=== PATIENT | male | born 1960 | race Two or more races ===

== ENCOUNTER 2025-09-06 14:42 | Inpatient (IN) | payer MEDICAID, OTHER ==
[~2025-09-06] VITALS: Ht 170.2 cm; Wt 81.0 kg
[2025-09-06] MEDS: MIDAZOLAM HCL 5 MG/ML-1ML VIAL IM ONE (15:03)
--- NOTE | 2025-09-06 15:09 | ED.PDOC ---
History of Present Illness HPI Comments 64-year-old male brought in by ambulance with a prior medical history of Parkinson's disease in the chief complaint of ALOC. EMS report on picking the patient home from home after family called to find the patient having an increase of visual and auditory hallucinations associated with an increase of falls for the past four days. Patient is A&Ox0 at this time. Family stated to EMS that the patient took a walk last night barefoot in the rain and that one of the neighbors brought the patient back home. EMS denies any other symptoms at this time. EMS denies chills, fever, N/V/D, SOB, CP. No other associated symptoms, modifiers, recent injuries or sick contacts present at this time. Chief Complaint: ALOC Time Seen by MD: 14:45 Reviewed Notes: Nurses Notes, [employer]inner [employer] Notes, Medications, Allergies Allergies: Coded Allergies: NO KNOWN ALLERGIES (Unverified , 09/06/25) Information Source: Emergency Med Personnel Mode of Arrival: EMS Severity: Moderate Timing: Days Duration: Since onset, Days Prehospital treatment: None Past Medical History PAST MEDICAL HISTORY: Pt Confused Surgical History: Pt Confused Family History Family History: Pt Confused Social History Smoker: Pt Confused Alcohol: Pt Confused Drugs: Pt Confused Lives In: Home Unable to Obtain due to: Altered Mental Status All Other Systems: Reviewed and Negative Physical Exam Exam Comments Patient's altered General Appearance: No Apparent Distress, Normal HEENT: Normal ENT Inspection, Pharynx Normal, TMs Normal Neck: Full Range of Motion, Non-Tender, Normal, Normal Inspection Respiratory: Chest Non-Tender, Lungs Clear, No Accessory Muscle Use, No Respiratory Distress, Normal Breath Sounds Cardiovascular: No Edema, No JVD, No Murmur, No Gallop, Normal Peripheral Puls es, Regular Rate/Rhythm Breast Exam: Deferred Gastrointestinal: No Organomegaly, Non Tender, No Pulsatile Mass, Normal Bowel Sounds, Soft Genitalia: Deferred Pelvic: Deferred Rectal: Deferred Extremities: No calf tenderness, Normal capillary refill, Normal inspection, Normal range of motion, Non-tender, No pedal edema Musculoskeletal : Apperance: Normal Neurologic: Alert, skill labor II-XII nml as Tested, No Motor Deficits, Normal Affect, Normal Mood, No Sensory Deficits Cerebellar Function: Normal Reflexes: Normal Skin: Dry, Normal Color, Warm Lymphatic: No Adenopathy Was a procedure done? Was a procedure done?: No Differential Dx Considerations may include: ACS, CVA, viral syndrome, electrolyte abnormalities, encephalopathy X-Ray, Labs, Meds, VS Vital Signs Date Time Temp Pulse Resp B/P (MAP) Pulse Ox O2 Delivery O2 Flow Rate FiO2 09/06/25 17:00 70 25 117/64 (81) 96 09/06/25 16:00 90 22 117/66 (83) 87 09/06/25 15:15 98.5 106 25 135/77 (96) 92 98.5 09/06/25 15:15 106 23 92 Room Air* 0 21 09/06/25 14:51 99.7 99 26 205/167 94 99.7 Lab Test 09/06/25 16:15 09/06/25 15:10 Range/Units Troponin I High Sensitivity 13 10 </=54 ng/L White Blood Count 10.6 4.4-10.8 10^3/uL Red Blood Count 4.93 4.5-5.90 10^6/uL Hemoglobin 15.7 13.5-17.5 g/dL Hematocrit 45.0 41.0-53.0 % Mean Corpuscular Volume 91.2 80.0-100.0 fL Mean Corpuscular Hemoglobin 31.8 28.0-32.0 pg Mean Corpuscular Hemoglobin Concent 34.9 32.0-36.0 g/dL Red Cell Distribution Width 13.0 11.8-14.3 % Platelet Count 216 140-450 10^3/uL Mean Platelet Volume 8.0 6.9-10.8 fL Neutrophils (%) (Auto) 79.3 37.0-80.0 % Lymphocytes (%) (Auto) 10.9 10.0-50.0 % Monocytes (%) (Auto) 9.4 0.0-12.0 % Eosinophils (%) (Auto) 0.1 0.0-7.0 % Basophils (%) (Auto) 0.3 0.0-2.0 % Neutrophils # (Auto) 8.4 1.6-8.6 10 ^3/uL Lymphocytes # (Auto) 1.2 0.4-5.4 10 ^3/uL Monocytes # (Auto) 1.0 0-1.3 10 ^3/uL Eosinophils # (Auto) 0 0-0.8 10 ^3/uL Basophils # (Auto) 0 0-0.2 10 ^3/uL Nucleated Red Blood Cells 0.1 % Sodium Level 138 136-145 mmol/L Potassium Level 3.8 3.5-5.1 mmol/L Chloride Level 101 98-107 mmol/L Carbon Dioxide Level 24 20-31 mmol/L Anion Gap 13 5-15 Blood Urea Nitrogen 15 9-23 mg/dL Creatinine 0.91 0.700-1.30 mg/dL Glomerular Filtration Rate Calc 95 >90 mL/min BUN/Creatinine Ratio 16.5 10.0-20.0 Serum Glucose 94 74-106 mg/dL Lactic Acid Level 2.2 *H 0.4-2.0 mmol/L Calcium Level 9.5 8.7-10.4 mg/dL Current Medications Medications (Trade) Dose Ordered Sig/Emily Route Start Time Stop Time Status Last Admin Midazolam HCl (Versed Injection) 10 mg ONCE ONCE IM 09/06/25 15:00 09/06/25 15:01 DC 09/06/25 15:03 Sodium Chloride 1,000 ml @ 1,000 mls/hr Q1H ONCE IV 09/06/25 15:15 09/06/25 16:14 DC 09/06/25 15:15 Time of 1ST Reevaluation: 15:15 Reevaluation 1ST: Unchanged Patient Education/Counseling: Other (Patient's altered) Family Education/Counseling: No Family Present SEPSIS Sepsis Screen Physician Orders Urinalysis (09/06/25 15:01) Chest Portable (09/06/25 15:01) Head Without Contrast (09/06/25 15:01) Electrocardigram (09/06/25 15:01) Blood Culture (09/06/25 15:01) Troponin-I Hs (09/06/25 18:01) Electrocardigram (09/06/25 16:01) Electrocardigram (09/06/25 18:01) Insert Ramirez Catheter QSHIFT (09/06/25 15:01) Urine Bacterial Culture (09/06/25 17:37) Vital Signs Date Time Temp Pulse Resp B/P (MAP) Pulse Ox O2 Delivery O2 Flow Rate FiO2 09/06/25 17:00 70 25 117/64 (81) 96 09/06/25 16:00 90 22 117/66 (83) 87 09/06/25 15:15 98.5 106 25 135/77 (96) 92 98.5 09/06/25 15:15 106 23 92 Room Air* 0 21 09/06/25 14:51 99.7 99 26 205/167 94 99.7 Laboratory Tests Test 09/06/25 15:10 Lactic Acid Level 2.2 mmol/L (0.4-2.0) *H White Blood Count 10.6 10^3/uL (4.4-10.8) Medications Medications Dose Ordered Sig/Emily Route Start Time Stop Time Status Last Admin Dose Admin Midazolam HCl 10 mg ONCE ONCE IM 09/06/25 15:00 09/06/25 15:01 DC 09/06/25 15:03 Sodium Chloride 1,000 ml @ 1,000 mls/hr Q1H ONCE IV 09/06/25 15:15 09/06/25 16:14 DC 09/06/25 15:15 Departure 1 Departure Time of Disposition: 18:01 (Patient with a worsening altered mental status and concern for a metabolic encephalopathy. Patient also with concern for CVA. Labs and CT scan up in bed.) Impression: Primary Impression: Acute metabolic encephalopathy Additional Impressions: Generalized weakness Parkinson's syndrome Disposition: ADMITTED INPATIENT Admit to: Tele Condition: Guarded Critical Care Note Critical Care Time?: Yes Critical care comment: Altered mental status and encephalopathy concerning for possible CVA Authorized and Performed by: Minoo Ardon MD Total critical care time: Approximately 39 minutes Due to a high probability of clinically significant, life threatening d eterioration, the patient required my highest level of preparedness to intervene emergently and I personally spent this critical care time directly and personally managing the patient. This critical care time included obtaining a history; examining the patient; pulse oximetry; ordering and review of studies; arranging urgent treatment with development of a management plan; evaluation of patient's response to treatment; frequent reassessment; and, discussions with other providers. This critical care time was performed to assess and manage the high probability of imminent, life-threatening deterioration that could result in multi-organ failure. It was exclusive of separately billable procedures and treating other patients and teaching time. Please see my other sections and the rest of the note for further information on patient assessment and treatment. Stability Stability form required: No I personally scribed for MINOO ARDON MD ([email or web address]) on 09/06/25 at 15:09. Electronically submitted by Rehan Lin ([email or web address]). MINOO ARDON MD Sep 06, 2025 15:09
[2025-09-06 15:15] VITALS: PULSE 106; RESP 23; O2SAT 92
[2025-09-06] MEDS: SODIUM CHLORIDE 0.9% 1,000 ML IV ONE (15:15)
[2025-09-06 15:30] LABS: Hematocrit 45.0 % (41.0-53.0); Hemoglobin 15.7 g/dL (13.5-17.5); Mean Corpuscular Hemoglobin 31.8 pg (28.0-32.0); Mean Corpuscular Volume 91.2 fL (80.0-100.0); Nucleated Red Blood Cells % 0.1 %
[2025-09-06 15:40] LABS: Chloride 101 mmol/L (98-107); Potassium 3.8 mmol/L (3.5-5.1); Sodium 138 mmol/L (136-145)
[2025-09-06 15:41] LABS: Anion Gap 13 (5-15); Calcium 9.5 mg/dL (8.7-10.4); Carbon Dioxide 24 mmol/L (20-31)
[2025-09-06 15:46] LABS: BUN/Creatinine Ratio 16.5 (10.0-20.0); Blood Urea Nitrogen 15 mg/dL (9-23); Glucose 94 mg/dL (74-106)
[2025-09-06 15:58] LABS: Lactic Acid w/Reflex 2.2 mmol/L (0.4-2.0)
--- NOTE | 2025-09-06 16:02 | DVH ---
XY CHEST PORTABLE, HISTORY: ams COMPARISON: None None TECHNICAL DATA: 1 view of the chest was obtained. FINDINGS: Lines and tubes: None Cardiomediastinal silhouette: normal Pulmonary vasculature: normal Lung expansion: low Lung airspace: normal Lung interstitium: normal Pleura: normal Pneumothorax: no Bones: Unremarkable Other: no IMPRESSION: Limited exam due to hyperexpansion of the lungs. No acute intrathoracic abnormality.
--- NOTE | 2025-09-06 16:10 | DVH ---
Procedure: CT HEAD WITHOUT CONTRAST Study Date and Requested Time: 09/06/2025 03:29 PM History: ams Comparison: None Dose: CTDI: 53.46 mGy DLP: 965.73 mGycm Technique: Multiplanar images obtained through the brain without intravenous contrast. Findings: Normal brain volume and formation. No hemorrhages, masses, mass effect, midline shift, herniation or cytotoxic edema following a large vascular territory. No intra-axial or extra-axial fluid collections. No evidence of hydrocephalus. The basal cisterns are patent. The pituitary gland, sella and parasellar regions are unremarkable. The cerebellar tonsils are in normal position. The cerebellum is unremarkable. The orbits and globes are unremarkable. Mild mucoperiosteal thickening of the right maxillary sinus. Otherwise, the paranasal sinuses and mastoids are clear. There are no worrisome calvarial lesions. Cerumen within the Left external auditory Canal. Impression: No evidence of acute intracranial abnormality.
[2025-09-06] MEDS: MIDAZOLAM HCL 5 MG/ML-1ML VIAL IV ONE (18:28)
[2025-09-06 19:30] VITALS: O2SAT 96
[2025-09-06 20:39] LABS: Urine Protein, UAD Negative (Negative)
[2025-09-06] MEDS ORDERED: NITROGLYCERIN 0.4 MG SL TAB SL PRN (21:30)
[2025-09-06] MEDS ORDERED: MORPHINE SULFATE INJ 2 MG/ml SYRG IV PRN (21:30)
--- NOTE | 2025-09-06 21:36 | DVHHPRES ---
History of Present Illness Resident Creating Document: KEEGAN CAMPA History of Present Illness Chief complaints: Altered mental status Wil Franz, 64-year-old male with previous history of Parkinson's disease on antiparkinson medications accompanied by family members presented to the ER with altered mental status, involuntary movements and abdominal pain. History was obtained from the family members due to patient's mental status. They reported that patient's baseline mental status is mild confusion, however, on the day of admission the patient was very agitated and escaped from home. That is why they brought him to the hospital. The sister reports the patient complained of upper abdominal pain, before the episode started. She denies the patient having any urinary symptoms, shortness of breath, chest pain or any o ther complaints before starting the episodes of hallucinations. Past medical history: Parkinson's disease Past surgical history: Inguinal hernia surgery 5 years ago Family history: Noncontributory Home medications: Sinemet (levo carbidopa), Artane (trihexyphenidyl) Smoking history: Previously heavy smoker, quit many years Alcohol: Occasionally Drugs: Denied Drug allergy: None Primary care doctor: [facility] Code status: Deferred due to patient's mental status. Review of Systems Gastrointestinal: Abdominal Pain Neurological: Confusion Allergies: Coded Allergies: NO KNOWN ALLERGIES (Unverified , 09/06/25) Exam Vital Signs Vital Signs Date Time Temp Pulse Resp B/P (MAP) Pulse Ox O2 Delivery O2 Flow Rate FiO2 09/06/25 18:00 72 24 119/64 (82) 96 09/06/25 15:15 98.5 98.5 09/06/25 15:15 Room Air* 0 21 Exam Pt is lying on bed General Appearance: Confused, not oriented to time place and person, Mild distress HEENT: Atraumatic, Mucous membranes moist/pink, Orofacial dyskinesia, Respiratory: Clear to auscultation, Normal air movement, No added sounds Cardiovascular: Regular rate, Normal S1, Normal S2, No murmurs Abdominal/ : Active bowel sounds, Soft, no distention, no tenderness Extremities: Chorea, No edema, Normal pulses, No tenderness/swelling Skin: No Significant rash, except past surgical scars Neuro: Normal speech, sensorimotor deficits none Psych/Mental Status: Mental status NL, Mood NL Nurse was there as corporate development intern during examination Labs/Xrays Labs Test 09/06/25 20:10 09/06/25 19:35 09/06/25 18:07 09/06/25 15:10 Range/Units Urine Color Light-orange Yellow Urine Clarity Clear Clear Urine pH 6.0 5.0-9.0 Urine Specific [place] 1.018 1.001-1.035 Urine Protein Negative Negative Urine Ketones 2+ H Negative Urine Blood 1+ H Negative /uL Urine Nitrite Negative Negative Urine Bilirubin Negative Negative Urine Urobilinogen Normal Negative mg/dL Urine Leukocyte Esterase Negative Negative /uL Urine RBC 8 0 - 3 /hpf Urine Microscopic WBC < 1 0-3 /HPF Urine Squamous Epithelial Cells Few <5 /hpf Urine Bacteria None seen None Seen /hpf Urine Hyaline Casts Few 0 - 2 /lpf Urine Glucose Normal Normal mg/dL POC Glucose 115 H 70-106 mg/dl Lactic Acid Level 0.4 0.4-2.0 mmol/L Troponin I High Sensitivity 21 </=54 ng/L White Blood Count 10.6 4.4-10.8 10^3/uL Red Blood Count 4.93 4.5-5.90 10^6/uL Hemoglobin 15.7 13.5-17.5 g/dL Hematocrit 45.0 41.0-53.0 % Mean Corpuscular Volume 91.2 80.0-100.0 fL Mean Corpuscular Hemoglobin 31.8 28.0-32.0 pg Mean Corpuscular Hemoglobin Concent 34.9 32.0-36.0 g/dL Red Cell Distribution Width 13.0 11.8-14.3 % Platelet Count 216 140-450 10^3/uL Mean Platelet Volume 8.0 6.9-10.8 fL Neutrophils (%) (Auto) 79.3 37.0-80.0 % Lymphocytes (%) (Auto) 10.9 10.0-50.0 % Monocytes (%) (Auto) 9.4 0.0-12.0 % Eosinophils (%) (Auto) 0.1 0.0-7.0 % Basophils (%) (Auto) 0.3 0.0-2.0 % Neutrophils # (Auto) 8.4 1.6-8.6 10 ^3/uL Lymphocytes # (Auto) 1.2 0.4-5.4 10 ^3/uL Monocytes # (Auto) 1.0 0-1.3 10 ^3/uL Eosinophils # (Auto) 0 0-0.8 10 ^3/uL Basophils # (Auto) 0 0-0.2 10 ^3/uL Nucleated Red Blood Cells 0.1 % Sodium Level 138 136-145 mmol/L Potassium Level 3.8 3.5-5.1 mmol/L Chloride Level 101 98-107 mmol/L Carbon Dioxide Level 24 20-31 mmol/L Anion Gap 13 5-15 Blood Urea Nitrogen 15 9-23 mg/dL Creatinine 0.91 0.700-1.30 mg/dL Glomerular Filtration Rate Calc 95 >90 mL/min BUN/Creatinine Ratio 16.5 10.0-20.0 Serum Glucose 94 74-106 mg/dL Calcium Level 9.5 8.7-10.4 mg/dL SEPSIS Sepsis Screen Date sepsis recognized/suspect: Sep 06, 2025 Time Sepsis recognized/suspect: 1514 Recent Procedure: No On Antibiotic Therapy: No Respiratory Rate >20: No Heart Rate >90: No Temp<36 C (96.8 F) or >38.3 C: No SBP <90 or MAP <65 mmHG: No New Acute Mental Status Change: No Is the patient on CPAP, BIPAP,: No Physician Orders Chest Portable (09/06/25 15:01) Head Without Contrast (09/06/25 15:01) Electrocardigram (09/06/25 15:01) Blood Culture (09/06/25 15:01) Electrocardigram (09/06/25 16:01) Electrocardigram (09/06/25 18:01) Insert Ramirez Catheter QSHIFT (09/06/25 15:01) Urine Bacterial Culture (09/06/25 17:37) Admit (09/06/25 21:24) Nitroglycerin Sublingual (Ntrostat Subli (09/06/25 21:30) Morphine Sulfate Injection (09/06/25 21:30) Oxygen By Nasal Cannula (09/06/25 21:24) Stat Ekg For Chest Pain (09/06/25 21:24) Notify Of Changes From Base (09/06/25 21:24) Mine Motor Operator For 24 Hours (09/06/25 21:24) Emergency Dysrhythmia Protocol (09/06/25 21:24) Rhythm Strips Once Every Shift (09/06/25 21:24) Ct Ab Pel Wo Con-No Oral Or Iv (09/06/25 21:24) B-Type Natriuretic Peptide (09/06/25 21:24) NS (09/06/25 21:30) Ceftriaxone Ivpb Rocephin (09/06/25 21:30) Ceftriaxone Ivpb Rocephin (09/07/25 10:00) Doxycycline 100mg/100ml (Vibramycin) (09/06/25 21:30) Drug Screen (09/06/25 21:24) Ammonia (09/06/25 21:24) Thyroid Stimulating Hormone (09/06/25 21:24) Vital Signs Date Time Temp Pulse Resp B/P (MAP) Pulse Ox O2 Delivery O2 Flow Rate FiO2 09/06/25 18:00 72 24 119/64 (82) 96 09/06/25 17:00 70 25 117/64 (81) 96 09/06/25 16:00 90 22 117/66 (83) 87 09/06/25 15:15 98.5 106 25 135/77 (96) 92 98.5 09/06/25 15:15 106 23 92 Room Air* 0 21 09/06/25 14:51 99.7 99 26 205/167 94 99.7 Laboratory Tests Test 09/06/25 15:10 09/06/25 18:07 Lactic Acid Level 2.2 mmol/L (0.4-2.0) *H 0.4 mmol/L (0.4-2.0) White Blood Count 10.6 10^3/uL (4.4-10.8) Medications Medications Dose Ordered Sig/Emily Route Start Time Stop Time Status Last Admin Dose Admin Midazolam HCl 5 mg ONCE ONCE IV 09/06/25 18:30 09/06/25 18:31 DC 09/06/25 18:28 5 MG Midazolam HCl 10 mg ONCE ONCE IM 09/06/25 15:00 09/06/25 15:01 DC 09/06/25 15:03 10 MG Sodium Chloride 1,000 ml @ 1,000 mls/hr Q1H ONCE IV 09/06/25 15:15 09/06/25 16:14 DC 09/06/25 15:15 1,000 MLS/HR Assessment/Plan Assessment/Plan Acute metabolic/toxic encephalopathy Sepsis or sirs due to acute Gram-positive or Gram-negative pneumonia head CT: No acute abnormality Chest x-ray: No acute abnormality EKG ordered, pending results Urinalysis: Negative UDS ordered IV antibiotics ceftriaxone and doxycycline ordered Parkinson's disease Chorea due to medication induced dyskinesia/anticholinergic effect Delirium due to underlying infection? Discontinue home medications due to acute confusion (home medications, Sinemet,artane) IV benzodiazepine IV Versed IV Benadryl Neurology consulted GI prophylaxis: Pantoprazole DVT prophylaxis: Lovenox Diet: NPO Goals of care discussed with the patient for more than 27 minutes: Full code status Case discussed with Dr. Aguilar, patient and RN Plan discussed with: Spouse, Daughter, Other (family,RN) My Orders Orders - KEEGAN CAMPA RESIDENT Procedure Category Date Status Time Admit ADMIT 09/06/25 Transmitted 21:24 Nitroglycerin PHA 09/06/25 Transmitted Sublingual (Ntrostat 21:30 Morphine Sulfate PHA 09/06/25 Transmitted Injection 21:30 Oxygen By Nasal RT 09/06/25 Transmitted Cannula 21:24 Stat Ekg For Chest VERITO 09/06/25 Transmitted Pain 21:24 Notify Md Of Changes VERITO 09/06/25 Transmitted From Base 21:24 Mine Motor Operator For VERITO 09/06/25 Transmitted 24 Hours 21:24 Emergency Dysrhythmia VERITO 09/06/25 Transmitted Protocol 21:24 Rhythm Strips Once VERITO 09/06/25 Transmitted Every Shift 21:24 Ct Ab Pel Wo Con-No CT 09/06/25 Transmitted Oral Or Iv 21:24 B-Type Natriuretic LAB 09/06/25 Transmitted Peptide 21:24 NS PHA 09/06/25 Transmitted 21:30 Ceftriaxone Ivpb PHA 09/06/25 Transmitted Rocephin 21:30 Ceftriaxone Ivpb PHA 09/07/25 Transmitted Rocephin 10:00 Doxycycline PHA 09/06/25 Transmitted 100mg/100ml 21:30 Drug Screen LAB 09/06/25 Transmitted 21:24 Ammonia LAB 09/06/25 Transmitted 21:24 Thyroid Stimulating LAB 09/06/25 Transmitted Hormone 21:24 Date of Service: Sep 06, 2025 Billing Provider: ANGELA AGUILAR MD Common Visit Codes: [id number] INP/OBS CARE (HIGH) Secondary Visit Codes: [id number] CARE PLAN 30 MINUTES KEEGAN CAMPA Sep 06, 2025 21:36
[2025-09-06] MEDS: SODIUM CHLORIDE 0.9% 1,000 ML IV SCH (22:15)
[2025-09-06] MEDS: PANTOPRAZOLE 40 MG/10 ML VIAL INJ IV ONE (22:15)
[2025-09-06] MEDS: ENOXAPARIN SOD 40 MG/0.4 ML SYRINGE SC ONE (22:16)
--- NOTE | 2025-09-06 22:41 | DVH ---
Exam: CT CT AB PEL WO CON-NO ORAL OR IV History: abdominal pain Comparison Study: None TECHNIQUE: Multidetector CT of the abdomen and pelvis was performed from lung bases to pubic symphysis. Imaging was performed without IV contrast. Axial, coronal, and sagittal multiplanar reformats were obtained from the axial data set by the technologist. RADIATION DOSE: CTDI vol 15.3 mGy. DLP 781.2 mGy.cm Findings: Limited evaluation of the solid organs in the absence of IV contrast. Evaluation is also degraded by motion artifact. Lungs: Basilar atelectasis/scarring. Liver: Unremarkable. Spleen: Unremarkable. Pancreas: Unremarkable. Gallbladder: Unremarkable. Adrenals: Unremarkable Kidneys: Unremarkable. Pelvic Viscera: A Ramirez catheter is present within a decompressed urinary bladder. Vasculature: Mild atherosclerotic vascular calcification. Retroperitoneum: Unremarkable. Bowel: No bowel obstruction. The appendix is normal. Nonspecific distention of the stomach. Musculoskeletal: Dextroscoliosis. Soft tissues: Unremarkable Impression: 1. Artifact degraded evaluation without acute abdominopelvic abnormality. 2. Incidental findings as detailed.
[2025-09-06] MEDS: DOXYCYCLINE 100MG/100ML 100 ML IV ONE (23:00)
[2025-09-06 23:27] LABS: Amphetamine Screen, Urine Neg (NEGATIVE); Phencyclidine Screen, Urine Neg (NEGATIVE)
[2025-09-06 23:29] LABS: Barbiturate Scree,Urine Neg (NEGATIVE); Benzodiazephine Screen, Urine Pos (NEGATIVE); Cannabinoid Screen, Urine Neg (NEGATIVE); Cocaine Screen, Urine Neg (NEGATIVE); Opiate Scree,Urine Neg (NEGATIVE)
[2025-09-07] MEDS: LORazepam 2MG/ML-1ML VIAL IV ONE ×2 (00:40→01:23)
[2025-09-07] MEDS: LORazepam 2MG/ML-1ML VIAL ONE (00:53)
[2025-09-07] MEDS: KETOROLAC TROMETH 30 MG/ML 1ML VIAL IV PRN (03:16)
[2025-09-07] MEDS: diphenhydrAMINE HCL 50 MG/1 ML VL ONE (04:02)
[2025-09-07] MEDS: diphenhydrAMINE HCL 50 MG/1 ML VL IV ONE (04:03)
[2025-09-07 06:12] LABS: COVID19 ANTIGEN SOFIA FIA NEGATIVE (NEGATIVE)
[2025-09-07] MEDS: ACETAMINOPHEN 650 MG RECT SUPP PR ONE (06:12)
[2025-09-07 07:29] VITALS: O2SAT 98
[2025-09-07] MEDS: PANTOPRAZOLE 40 MG/10 ML VIAL INJ IV SCH (10:05)
[2025-09-07] MEDS: ENOXAPARIN SOD 40 MG/0.4 ML SYRINGE SC SCH (10:06)
--- NOTE | 2025-09-07 10:23 | ECG ---
[facility] Test Date: 2025-09-07 Test Time: 01:24:29 Pat Name: MAURIZIO COLON Department: ED Room: 0249 Gender: M Etl Developer: JOVON : 1960 Requested By: KEEGAN CAMPA Order Number: [id number] Reading MD: Andrew Shah Measurements Intervals [place] Rate: 91 P: 53 PA: 130 QRS: 90 QRSD: 91 T: 10 QT: 347 QTc: 427 Interpretive Statements Sinus rhythm Borderline right axis deviation Low voltage, extremity leads Abnormal R-wave progression, late transition Minimal ST depression, inferior leads Baseline wander in lead(s) I,II,III,aVR,aVF,V1 Electronically Signed On 09-08-2025 17:57:39 PST by Andrew Shah Please click the below link to view image of tracing.
--- NOTE | 2025-09-07 13:55 | DVHPN2 ---
Subjective Patient reports lower back pain Reviewed: Care Plan, H&P, Labs, Medications Changes from previous H/P or p: No Changes General: Per HPI Gastrointestinal: Abdominal Pain Objective Vitals Vital Signs Date Time Temp Pulse Resp B/P (MAP) Pulse Ox O2 Delivery O2 Flow Rate FiO2 09/07/25 13:05 16 136/76 (96) 97 09/07/25 10:11 102 09/07/25 08:07 98.6 98.6 09/07/25 07:29 Nasal Cannula* 2 28 Intake/Output Intake and Output 09/07/25 07:00 Intake Total 1730 ml Output Total 900 ml Balance 830 ml Intake IV Total 1730 ml Output Urine Total 900 ml General Appearance: Alert, mild distress, Other (Altered mental status) HEENT: Atraumatic, PERRLA Cardiovascular: Normal S1, Normal S2 Abdomen: Normal bowel sounds, Soft, No tenderness Musculoskeletal: Normal sensory function, Normal motor function Neuro: Normal gait, Normal speech Skin: Dry, Intact Psych/Mental Status: Mental status NL Medications Current Medications Medications Dose Ordered Sig/Emily Route Start Time Stop Time Status Last Admin Dose Admin Nitroglycerin 0.4 mg Q5MINP PRN SL 09/06/25 21:30 Morphine Sulfate 2 mg Q30M PRN IV 09/06/25 21:30 Sodium Chloride 1,000 ml @ 75 mls/hr [id number] IV 09/06/25 21:30 09/06/25 22:15 75 MLS/HR Ceftriaxone Sodium 50 ml @ 100 mls/hr DAILY@2100 IV 09/07/25 21:00 Enoxaparin Sodium 40 mg DAILY SC 09/07/25 10:00 09/07/25 10:06 40 MG Pantoprazole Sodium 40 mg DAILY IV 09/07/25 10:00 09/07/25 10:05 40 MG Ketorolac Tromethamine 15 mg Q6HPRN PRN IV 09/07/25 01:15 09/12/25 01:14 09/07/25 03:16 15 MG Laboratory Results Laboratory Tests 09/06/25 15:10 Chemistry Test 09/06/25 15:10 Calcium Level 9.5 mg/dL (8.7-10.4) Cardiac Markers Test 09/06/25 21:44 B-Type Natriuretic Peptide 70.56 pg/mL (0-100) HgA1c, TSH Test 09/06/25 21:44 Thyroid Stimulating Hormone (TSH) 0.40 uIU/mL (0.55-4.78) L Urinalysis Test 09/06/25 20:10 Urine Color Light-orange (Yellow) Urine Clarity Clear (Clear) Urine pH 6.0 (5.0-9.0) Urine Specific [place] 1.018 (1.001-1.035) Urine Protein Negative (Negative) Urine Ketones 2+ (Negative) H Urine Blood 1+ /uL (Negative) H Urine Nitrite Negative (Negative) Urine Bilirubin Negative (Negative) Urine Urobilinogen Normal mg/dL (Negative) Urine Leukocyte Esterase Negative /uL (Negative) Urine RBC 8 /hpf (0 - 3) Urine Microscopic WBC < 1 /HPF (0-3) Urine Squamous Epithelial Cells Few /hpf (<5) Urine Bacteria None seen /hpf (None Seen) Urine Hyaline Casts Few /lpf (0 - 2) Urine Glucose Normal mg/dL (Normal) Microbiology Microbiology Date/Time Source Procedure Growth Status 09/06/25 20:10 Urine - [place] Urine Culture - Preliminary No growth Resulted Labs and/or images reviewed: Labs reviewed by me, Image(s) reviewed by me Assessment/Plan Assessment/Plan Impression: -metabolic encephalopathy -lactic acidosis -Parkinson's disease Plan: -check ESR, CRP vitamin-D, folic acid, thiamine -neurology consultation -continue IV fluids -Haldol 5 mg IM p.r.n. agitation -blood and urine cultures pending -repeat labs in a.m. Total time spent with patient discussing and formulating plan of care: 35 minutes. This medical document was created using an electronic medical record system with [employer] dictation system. Although this document has been carefully reviewed, there may still be some phonetic and typographical errors. These areas are purely typographical due to imperfections of the software programs, and do not reflect any compromise in the patient's medical care. Plan discussed with: Patient, Other (RN) My Orders Orders - REGGIE HANNAH INDIVIDUALIZED EDUCATION PLAN AIDE Procedure Category Date Status Time * Neurology Consult CONS 09/07/25 Transmitted 13:47 Regular Diet DIET 09/07/25 Transmitted Dinner Vitamin B1 (Thiamine) LAB 09/07/25 Transmitted 13:47 Vitamin B12 LAB 09/07/25 Transmitted 13:47 Vitamin D 25-Hydroxy LAB 09/07/25 Transmitted D2 + D3 13:47 Folate (Folic Acid) LAB 09/07/25 Transmitted 13:47 Haloperidol Lactate PHA 09/07/25 Transmitted Injection (Haldol) 14:00 Erythrocyte LAB 09/07/25 Transmitted Sedimentation Rate 13:47 C-Reactive Protein LAB 09/07/25 Transmitted 13:47 Date of Service: Sep 07, 2025 Billing Provider: REGGIE HANNAH NP Common Visit Codes: [id number] INP/OBS CARE(HIGH) REGGIE HANNAH NP Sep 07, 2025 13:55
[2025-09-07] MEDS ORDERED: HALOPERIDOL LACTATE 5 MG/ML INJ VIAL IM PRN (14:00)
[2025-09-07 16:58] VITALS: BP 134/97; PULSE 89; RESP 17; TEMP 99.1; O2SAT 96; O2SAT 98
[2025-09-07 17:00] VITALS: BP 134/97; PULSE 89; RESP 17; TEMP 99.1; O2SAT 96
[2025-09-07 21:00] VITALS: BP 104/71; PULSE 76; RESP 18; RESP 19; TEMP 89.7; TEMP 98.7; O2SAT 98
[2025-09-08] VITALS (7 sets, daily range): BP systolic 122–136; BP diastolic 81–93; PULSE 69–81; RESP 17–22; TEMP 98.2–99.6; O2SAT 96–98
--- NOTE | 2025-09-08 10:12 | DVHPN2 ---
Subjective Patient denies any symptoms Reviewed: Care Plan, H&P, Labs, Medications Changes from previous H/P or p: Changes General: Per HPI Gastrointestinal: Abdominal Pain Objective Vitals Vital Signs Date Time Temp Pulse Resp B/P (MAP) Pulse Ox O2 Delivery O2 Flow Rate FiO2 09/08/25 09:00 99.1 81 22 130/83 (99) 96 99.1 09/07/25 20:00 Room Air* 0 21 Intake/Output Intake and Output 09/08/25 07:00 Intake Total 400 ml Output Total 2350 ml Balance -1950 ml Intake Oral 100 ml IV Total 300 ml Output Urine Total 2350 ml General Appearance: Alert, Oriented X3, Cooperative, No acute distress HEENT: Atraumatic, PERRLA Cardiovascular: Normal S1, Normal S2 Abdomen: Normal bowel sounds, Soft, No tenderness Musculoskeletal: Normal sensory function, Normal motor function Neuro: Normal gait, Normal speech Skin: Dry, Intact Psych/Mental Status: Mental status NL, Mood NL Medications Current Medications Medications Dose Ordered Sig/Emily Route Start Time Stop Time Status Last Admin Dose Admin Nitroglycerin 0.4 mg Q5MINP PRN SL 09/06/25 21:30 Morphine Sulfate 2 mg Q30M PRN IV 09/06/25 21:30 Sodium Chloride 1,000 ml @ 75 mls/hr [id number] IV 09/06/25 21:30 09/08/25 00:10 75 MLS/HR Ceftriaxone Sodium 50 ml @ 100 mls/hr DAILY@2100 IV 09/07/25 21:00 09/07/25 21:28 100 MLS/HR Enoxaparin Sodium 40 mg DAILY SC 09/07/25 10:00 09/07/25 10:06 40 MG Pantoprazole Sodium 40 mg DAILY IV 09/07/25 10:00 09/07/25 10:05 40 MG Ketorolac Tromethamine 15 mg Q6HPRN PRN IV 09/07/25 01:15 09/12/25 01:14 09/07/25 03:16 15 MG Haloperidol Lactate 5 mg Q8HP PRN IM 09/07/25 14:00 Laboratory Results Laboratory Tests 09/06/25 15:10 Urinalysis Test 09/06/25 20:10 Urine Color Light-orange (Yellow) Urine Clarity Clear (Clear) Urine pH 6.0 (5.0-9.0) Urine Specific [place] 1.018 (1.001-1.035) Urine Protein Negative (Negative) Urine Ketones 2+ (Negative) H Urine Blood 1+ /uL (Negative) H Urine Nitrite Negative (Negative) Urine Bilirubin Negative (Negative) Urine Urobilinogen Normal mg/dL (Negative) Urine Leukocyte Esterase Negative /uL (Negative) Urine RBC 8 /hpf (0 - 3) Urine Microscopic WBC < 1 /HPF (0-3) Urine Squamous Epithelial Cells Few /hpf (<5) Urine Bacteria None seen /hpf (None Seen) Urine Hyaline Casts Few /lpf (0 - 2) Urine Glucose Normal mg/dL (Normal) Microbiology Microbiology Date/Time Source Procedure Growth Status 09/06/25 20:10 Urine - [place] Urine Culture - Preliminary No growth Resulted 09/06/25 15:16 Blood Blood Culture - Preliminary NO GROWTH AFTER 24 HOURS OF INCUBATION. Resulted Labs and/or images reviewed: Labs reviewed by me, Image(s) reviewed by me Assessment/Plan Assessment/Plan Impression: -metabolic encephalopathy -lactic acidosis -Parkinson's disease Plan: Events: Previous hallucinations, delusions have resolved. Patient tolerating oral intake without any issues today. Awaiting Neurology consultation. -neurology consultation -continue IV fluids -Haldol 5 mg IM p.r.n. agitation -blood and urine cultures pending Total time spent with patient discussing and formulating plan of care: 35 minutes. This medical document was created using an electronic medical record system with [employer]ACK dictation system. Although this document has been carefully reviewed, there may still be some phonetic and typographical errors. These areas are purely typographical due to imperfections of the software programs, and do not reflect any compromise in the patient's medical care. Plan discussed with: Patient, Other (RN) My Orders Orders - REGGIE HANNAH NP Procedure Category Date Status Time * Neurology Consult CONS 09/07/25 Transmitted 13:47 Regular Diet DIET 09/07/25 Transmitted Dinner Vitamin B1 (Thiamine) LAB 09/07/25 In Process 13:47 Vitamin D 25-Hydroxy LAB 09/07/25 In Process D2 + D3 13:47 Haloperidol Lactate PHA 09/07/25 In Process Injection (Haldol) 14:00 Date of Service: Sep 08, 2025 Billing Provider: SALBINO,PAREDES SAL[employer] SERVICE [employer]OMOTER Common Visit Codes: [id number] INP/OBS CARE(HIGH) REGGIE HANNAH SALES SERVICE PROMOTER Sep 08, 2025 10:12
[2025-09-09] VITALS (8 sets, daily range): BP systolic 117–155; BP diastolic 88–109; PULSE 68–79; RESP 17–18; TEMP 97–98.6; O2SAT 97–98
[2025-09-09] MEDS ORDERED: CARB-86 PO (10:41)
[2025-09-09] MEDS: LACTULOSE 20Gm/30ML SOLN PO ONE (10:45)
--- NOTE | 2025-09-09 10:51 | DVHPN2 ---
Subjective Patient denies any symptoms Reviewed: Care Plan, H&P, Labs, Medications Changes from previous H/P or p: No Changes General: Per HPI Gastrointestinal: Abdominal Pain Objective Vitals Vital Signs Date Time Temp Pulse Resp B/P (MAP) Pulse Ox O2 Delivery O2 Flow Rate FiO2 09/09/25 04:55 98.6 76 18 146/102 (117) 98 98.6 09/08/25 20:00 Nasal Cannula* 2 28 Intake/Output Intake and Output 09/09/25 07:00 Intake Total 2960 ml Output Total 1325 ml Balance 1635 ml Intake Oral 2960 ml Output Urine Total 1325 ml General Appearance: Alert, Oriented X3, Cooperative, No acute distress HEENT: Atraumatic, PERRLA Cardiovascular: Normal S1, Normal S2 Abdomen: Normal bowel sounds, Soft, No tenderness Musculoskeletal: Normal sensory function, Normal motor function Neuro: Normal gait, Normal speech Skin: Dry, Intact Psych/Mental Status: Mental status NL, Mood NL Medications Current Medications Medications Dose Ordered Sig/Emily Route Start Time Stop Time Status Last Admin Dose Admin Nitroglycerin 0.4 mg Q5MINP PRN SL 09/06/25 21:30 Morphine Sulfate 2 mg Q30M PRN IV 09/06/25 21:30 Sodium Chloride 1,000 ml @ 75 mls/hr [id number] IV 09/06/25 21:30 09/09/25 02:50 75 MLS/HR Ceftriaxone Sodium 50 ml @ 100 mls/hr DAILY@2100 IV 09/07/25 21:00 09/08/25 21:09 100 MLS/HR Enoxaparin Sodium 40 mg DAILY SC 09/07/25 10:00 09/08/25 10:33 40 MG Pantoprazole Sodium 40 mg DAILY IV 09/07/25 10:00 09/08/25 10:33 40 MG Ketorolac Tromethamine 15 mg Q6HPRN PRN IV 09/07/25 01:15 09/12/25 01:14 09/07/25 03:16 15 MG Haloperidol Lactate 5 mg Q8HP PRN IM 09/07/25 14:00 Carbidopa/Levodopa 1 tab QID PO 09/09/25 12:00 UNV Amlodipine Besylate 5 mg DAILY PO 09/10/25 10:00 UNV Laboratory Results Laboratory Tests 09/06/25 15:10 Urinalysis Test 09/06/25 20:10 Urine Color Light-orange (Yellow) Urine Clarity Clear (Clear) Urine pH 6.0 (5.0-9.0) Urine Specific [place] 1.018 (1.001-1.035) Urine Protein Negative (Negative) Urine Ketones 2+ (Negative) H Urine Blood 1+ /uL (Negative) H Urine Nitrite Negative (Negative) Urine Bilirubin Negative (Negative) Urine Urobilinogen Normal mg/dL (Negative) Urine Leukocyte Esterase Negative /uL (Negative) Urine RBC 8 /hpf (0 - 3) Urine Microscopic WBC < 1 /HPF (0-3) Urine Squamous Epithelial Cells Few /hpf (<5) Urine Bacteria None seen /hpf (None Seen) Urine Hyaline Casts Few /lpf (0 - 2) Urine Glucose Normal mg/dL (Normal) Microbiology Microbiology Date/Time Source Procedure Growth Status 09/06/25 20:10 Urine - [place] Urine Culture - Preliminary No growth Resulted 09/06/25 15:16 Blood Blood Culture - Preliminary NO GROWTH AFTER 48 HOURS OF INCUBATION. Resulted Labs and/or images reviewed: Image(s) reviewed by me Assessment/Plan Assessment/Plan Impression: -metabolic encephalopathy -lactic acidosis -Parkinson's disease -constipation Plan: Events: No events overnight. Patient A&O x4. Constipated. Neuro evaluation continues to be pending -bowel regimen -restart carbidopa levodopa -neurology consultation -continue IV fluids -Haldol 5 mg IM p.r.n. agitation -blood and urine cultures with no growth at this time Total time spent with patient discussing and formulating plan of care: 35 minutes. This medical document was created using an electronic medical record system with [employer] dictation system. Although this document has been carefully reviewed, there may still be some phonetic and typographical errors. These areas are purely typographical due to imperfections of the software programs, and do not reflect any compromise in the patient's medical care. Plan discussed with: Patient, Other (RN) My Orders Orders - REGGIE HANNAH COORDINATOR OF [employer]ETIC SERVICES Procedure Category Date Status Time Basic Metabolic Panel LAB 09/09/25 Logged 10:38 Complete Blood Count LAB 09/09/25 Logged 10:38 Lactulose Oral PHA 09/09/25 Logged 10:45 Carbidopa W Levodopa PHA 11/19/25 Logged 25/100mg (Sinemet 2 12:00 Amlodipine Tablet PHA 09/10/25 Logged (Norvasc Tablet) 10:00 BRP VERITO 09/09/25 In Process 10:49 Discontinue [place] VERITO 09/09/25 In Process Catheter 10:49 Date of Service: Sep 09, 2025 Billing Provider: REGGIE HANNAH NP Common Visit Codes: [id number] INP/OBS CARE(HIGH) REGGIE HANNAH NP Sep 09, 2025 10:51
[2025-09-09] MEDS: CARBIDOPA W LEVODOPA 25/100mg TABLET PO SCH (12:00)
[2025-09-09 12:18] LABS: Hematocrit 48.0 % (41.0-53.0); Hemoglobin 16.7 g/dL (13.5-17.5); Mean Corpuscular Hemoglobin 32.4 pg (28.0-32.0); Mean Corpuscular Volume 92.9 fL (80.0-100.0); Nucleated Red Blood Cells % 0.2 %
[2025-09-09 12:21] LABS: Chloride 106 mmol/L (98-107); Potassium 3.8 mmol/L (3.5-5.1); Sodium 141 mmol/L (136-145)
[2025-09-09 12:22] LABS: Anion Gap 9 (5-15); Carbon Dioxide 26 mmol/L (20-31)
[2025-09-09 12:23] LABS: Calcium 8.8 mg/dL (8.7-10.4)
[2025-09-09 12:28] LABS: BUN/Creatinine Ratio 23.1 (10.0-20.0); Blood Urea Nitrogen 12 mg/dL (9-23); Glucose 101 mg/dL (74-106)
[2025-09-10] VITALS (7 sets, daily range): BP systolic 148–160; BP diastolic 93–106; PULSE 67–80; RESP 17–18; TEMP 37.2; O2SAT 96–99
--- NOTE | 2025-09-10 10:07 | DVHINCON2 ---
Date of service: Sep 10, 2025 Referring Physician [place] Reason for Consultation Involuntary movement, history of Parkinson's disease on antiparkinsonian medication History of Present Illness Mr. Franz is a 64 years old right-handed gentleman with a history of Parkinson's disease, the patient was admitted to the [facility] on 09/06/2025 with a chief complaint of ALOC. At this time, he is alert and fully oriented, The patient was sent to the hospital because of altered mental status, visual hallucination, which has improved in the hospital, but he also has a history of tremors About 15 years ago, he started have tremors in the left hand when he is walking, but not when he is watching TV or eating or writing. About 14 years ago, similar tremors started in the right hand, but he reports the right hand is always less affected because it was easier for him to control the tremors. His voice has been soft, I noticed diminished facial expression and blinking. He reports gait has been difficult because he falls when he walks. He reports good sense of smell, he has no constipation or other RBD symptoms. Alcohol consumption worsened the tremors He sees a local neurologist, Dr. Kirk, he is on Sinemet one tablets 4 times a day which helps the tremors Ext Med Hx: Sinemet one tablets q.i.d., trihexyphenidyl 2 mg daily The case was discussed with [place] Urinalysis, 09/06/2025: WBC: One, urine leukocyte esterase: Negative UDS, 09/06/2025: Benzo CBC, 09/09/2025: Unremarkable BMP 09/09/2025: Unremarkable Vitamin B12, 09/07/25: 560 Folic acid, 09/07/2025: 23.24 TSH, 09/06/2025: 0.4 CT head, 09/06/2025: No evidence of acute intracranial abnormality. Past Medical History Parkinson's disease Past Surgical History None Family History: Patient reports no known family medical history. Family History No tremor, no Parkinson's disease in the family Social History He was a heavy alcohol drinker till 15 years ago, he denies a history of drug abuse Allergies: Coded Allergies: NO KNOWN ALLERGIES (Unverified , 09/06/25) Home Meds Reported Medications Levodopa W/Carbidopa (Carbidopa/Levodopa) 1 Tab Tab, 1 TAB PO QID 09/09/25 Current Medications Current Medications Medications (Trade) Dose Ordered Sig/Emily Route PRN Reason Start Time Stop Time Status Last Admin Carbidopa/Levodopa (Sinemet 25/ 100MG) 1 tab QID PO 09/09/25 12:00 09/10/25 06:44 Amlodipine Besylate (Norvasc Tablet) 5 mg DAILY PO 09/10/25 10:00 09/10/25 09:26 Review of Systems As above, the other systems are negative Vital Signs Vital Signs Date Time Temp Pulse Resp B/P (MAP) Pulse Ox O2 Delivery O2 Flow Rate FiO2 09/10/25 09:26 156/101 09/10/25 04:54 98.3 67 18 99 98.3 09/09/25 20:00 Nasal Cannula* 2 28 Physical Exam GENERAL EXAM: General: the patient is well developed and nourished. No acute distress. The throat is Mallampati grade RESPIRATORY: Normal respiratory effort with symmetrical lung expansion. Lungs clear to auscultation. CARDIOVASCULAR: Regular rate and rhythm with no murmurs. S1, S2. ABDOMEN: Soft, nontender, normal bowel sound NEUROLOGICAL: MENTAL STATUS: Awake and alert. Oriented to person, place, time and general circumstances. Able to give personal history. SPEECH, LANGUAGE, HIGHER CORTICAL FUNCTION: no aphasia or dysathria (he claimed voice was soft) CRANIAL NERVES: #2: Intact visual powell to confrontation. The optic discs were sharp. #3,4,6: Pupils are equal, round and reactive. EOMs full and conjugate. #5: Facial sensation intact in all three divisions bilaterally. Mandibular strength intact. Subtle tremor in the chin #7: Facial muscles symmetrical and strength intact. #8: Hearing grossly normal to voice. #9,10: Uvula and soft palate rise in the midline. Swallow and voice are normal. #11: Trapezius and sternomastoid strength intact bilaterally. #12: Tongue midline. No fasciculations or atrophy. SENSATION: Sensation to touch and pinprick is normal. MOTOR: Normal tone in the upper and lower extremity. Normal muscle bulk. No fasciculations. Tremor in both upper extremities, right-sided more affected (the patient claimed left side is worse because it is a hard for him to control). Muscle strength of the major groups in the upper extremities is 5/5. Muscle strength of the major groups in the lower extremities is 4/5. REFLEXES: Deep tendon reflexes are symmetrical. No pathological reflexes. CEREBELLAR/COORDINATION: Finger to nose is normal bilaterally. GAIT/STATION: deferred. Labs/Diagnostic Data Labs Test 09/09/25 11:55 09/07/25 14:41 09/07/25 04:59 09/07/25 04:49 Range/Units White Blood Count 6.7 # 4.4-10.8 10^3/uL Red Blood Count 5.17 4.5-5.90 10^6/uL Hemoglobin 16.7 13.5-17.5 g/dL Hematocrit 48.0 41.0-53.0 % Mean Corpuscular Volume 92.9 80.0-100.0 fL Mean Corpuscular Hemoglobin 32.4 H 28.0-32.0 pg Mean Corpuscular Hemoglobin Concent 34.8 32.0-36.0 g/dL Red Cell Distribution Width 13.3 11.8-14.3 % Platelet Count 176 140-450 10^3/uL Mean Platelet Volume 7.9 6.9-10.8 fL Neutrophils (%) (Auto) 71.4 37.0-80.0 % Lymphocytes (%) (Auto) 16.5 10.0-50.0 % Monocytes (%) (Auto) 10.0 0.0-12.0 % Eosinophils (%) (Auto) 1.6 0.0-7.0 % Basophils (%) (Auto) 0.5 0.0-2.0 % Neutrophils # (Auto) 4.8 1.6-8.6 10 ^3/uL Lymphocytes # (Auto) 1.1 0.4-5.4 10 ^3/uL Monocytes # (Auto) 0.7 0-1.3 10 ^3/uL Eosinophils # (Auto) 0.1 0-0.8 10 ^3/uL Basophils # (Auto) 0 0-0.2 10 ^3/uL Nucleated Red Blood Cells 0.2 % Sodium Level 141 136-145 mmol/L Potassium Level 3.8 3.5-5.1 mmol/L Chloride Level 106 98-107 mmol/L Carbon Dioxide Level 26 20-31 mmol/L Anion Gap 9 5-15 Blood Urea Nitrogen 12 9-23 mg/dL Creatinine 0.52 L 0.700-1.30 mg/dL Glomerular Filtration Rate Calc 114 >90 mL/min BUN/Creatinine Ratio 23.1 H 10.0-20.0 Serum Glucose 101 74-106 mg/dL Calcium Level 8.8 8.7-10.4 mg/dL Erythrocyte Sedimentation Rate 1 0-20 mm/hr C-Reactive Protein High Sensitivity 1.46 H <1.0 mg/dL Vitamin B12 Level 560 211-911 pg/mL Folic Acid 23.24 >5.38 ng/mL POC Glucose 100 70-106 mg/dl Influenza Type A Antigen Negative Negative Influenza Type B Antigen Negative Negative SARS-CoV-2 Antigen (Rapid) Negative NEGATIVE Test 09/06/25 21:44 09/06/25 20:10 09/06/25 18:07 Range/Units Ammonia 31 11-32 umol/L B-Type Natriuretic Peptide 70.56 0-100 pg/mL Thyroid Stimulating Hormone (TSH) 0.40 L 0.55-4.78 uIU/mL Urine Color Light-orange Yellow Urine Clarity Clear Clear Urine pH 6.0 5.0-9.0 Urine Specific [place] 1.018 1.001-1.035 Urine Protein Negative Negative Urine Ketones 2+ H Negative Urine Blood 1+ H Negative /uL Urine Nitrite Negative Negative Urine Bilirubin Negative Negative Urine Urobilinogen Normal Negative mg/dL Urine Leukocyte Esterase Negative Negative /uL Urine RBC 8 0 - 3 /hpf Urine Microscopic WBC < 1 0-3 /HPF Urine Squamous Epithelial Cells Few <5 /hpf Urine Bacteria None seen None Seen /hpf Urine Hyaline Casts Few 0 - 2 /lpf Urine Glucose Normal Normal mg/dL Urine Opiates Screen Neg NEGATIVE Urine Fentanyl Screen Neg NEGATIVE Urine Barbiturates Screen Neg NEGATIVE Urine Phencyclidine Screen Neg NEGATIVE Urine Amphetamines Screen Neg NEGATIVE Urine Benzodiazepines Screen Pos NEGATIVE Urine Cocaine Screen Neg NEGATIVE Urine Cannabinoids Screen Neg NEGATIVE Lactic Acid Level 0.4 0.4-2.0 mmol/L Troponin I High Sensitivity 21 </=54 ng/L Microbiology Date/Time Source Procedure Growth Status 09/06/25 20:10 Urine - [place] Urine Culture - Final Complete 09/06/25 15:16 Blood Blood Culture - Preliminary NO GROWTH AFTER 72 HOURS OF INCUBATION. Resulted Assessment Tremors Likely Parkinson's disease Essential tremors, less likely Altered mental status Metabolic encephalopathy Plan/Recommendation Monitoring Supportive treatment Med surge care Sinemet 25/100 mg one tablets q.i.d. GI prophylax/Protonix DVT prophylaxis/Lovenox Follow up with his family doctors on discharge Follow up with Dr. Kirk, his neurologist, discharge More recommendation per clinical course Prognosis: Poor This medical document was created using an electronic medical record system with [employer] dictation system. Although this document has been carefully reviewed, there may still be some phonetic and typographical errors. These areas are purely typographical due to imperfections of the software programs, and do not reflect any compromise in the patient's medical care. Plan discussed with: Patient, Other MAYNOR VELEZ MD Sep 10, 2025 10:07
[2025-09-10] MEDS ORDERED: CEFD300C2 PO (10:50)
--- NOTE | 2025-09-10 12:42 | DVHDS2 ---
Discharge Summary Date of Admission Sep 06, 2025 at 21:24 Date of Discharge: Sep 10, 2025 Admitting Diagnosis Metabolic encephalopathy Labs/Diagnostic Data: Laboratory Results Test 09/09/25 11:55 09/07/25 14:41 09/07/25 04:59 09/07/25 04:49 White Blood Count 6.7 10^3/uL (4.4-10.8) Red Blood Count 5.17 10^6/uL (4.5-5.90) Hemoglobin 16.7 g/dL (13.5-17.5) Hematocrit 48.0 % (41.0-53.0) Mean Corpuscular Volume 92.9 fL (80.0-100.0) Mean Corpuscular Hemoglobin 32.4 pg (28.0-32.0) Mean Corpuscular Hemoglobin Concent 34.8 g/dL (32.0-36.0) Red Cell Distribution Width 13.3 % (11.8-14.3) Platelet Count 176 10^3/uL (140-450) Mean Platelet Volume 7.9 fL (6.9-10.8) Neutrophils (%) (Auto) 71.4 % (37.0-80.0) Lymphocytes (%) (Auto) 16.5 % (10.0-50.0) Monocytes (%) (Auto) 10.0 % (0.0-12.0) Eosinophils (%) (Auto) 1.6 % (0.0-7.0) Basophils (%) (Auto) 0.5 % (0.0-2.0) Neutrophils # (Auto) 4.8 10 ^3/uL (1.6-8.6) Lymphocytes # (Auto) 1.1 10 ^3/uL (0.4-5.4) Monocytes # (Auto) 0.7 10 ^3/uL (0-1.3) Eosinophils # (Auto) 0.1 10 ^3/uL (0-0.8) Basophils # (Auto) 0 10 ^3/uL (0-0.2) Nucleated Red Blood Cells 0.2 % Sodium Level 141 mmol/L (136-145) Potassium Level 3.8 mmol/L (3.5-5.1) Chloride Level 106 mmol/L (98-107) Carbon Dioxide Level 26 mmol/L (20-31) Anion Gap 9 (5-15) Blood Urea Nitrogen 12 mg/dL (9-23) Creatinine 0.52 mg/dL (0.700-1.30) Glomerular Filtration Rate Calc 114 mL/min (>90) BUN/Creatinine Ratio 23.1 (10.0-20.0) Serum Glucose 101 mg/dL (74-106) Calcium Level 8.8 mg/dL (8.7-10.4) Erythrocyte Sedimentation Rate 1 mm/hr (0-20) C-Reactive Protein High Sensitivity 1.46 mg/dL (<1.0) Vitamin B12 Level 560 pg/mL (211-911) Folic Acid 23.24 ng/mL (>5.38) POC Glucose 100 mg/dl (70-106) Influenza Type A Antigen Negative (Negative) Influenza Type B Antigen Negative (Negative) SARS-CoV-2 Antigen (Rapid) Negative (NEGATIVE) Test 09/06/25 21:44 09/06/25 20:10 09/06/25 18:07 Ammonia 31 umol/L (11-32) B-Type Natriuretic Peptide 70.56 pg/mL (0-100) Thyroid Stimulating Hormone (TSH) 0.40 uIU/mL (0.55-4.78) Urine Color Light-orange (Yellow) Urine Clarity Clear (Clear) Urine pH 6.0 (5.0-9.0) Urine Specific [place] 1.018 (1.001-1.035) Urine Protein Negative (Negative) Urine Ketones 2+ (Negative) Urine Blood 1+ /uL (Negative) Urine Nitrite Negative (Negative) Urine Bilirubin Negative (Negative) Urine Urobilinogen Normal mg/dL (Negative) Urine Leukocyte Esterase Negative /uL (Negative) Urine RBC 8 /hpf (0 - 3) Urine Microscopic WBC < 1 /HPF (0-3) Urine Squamous Epithelial Cells Few /hpf (<5) Urine Bacteria None seen /hpf (None Seen) Urine Hyaline Casts Few /lpf (0 - 2) Urine Glucose Normal mg/dL (Normal) Urine Opiates Screen Neg (NEGATIVE) Urine Fentanyl Screen Neg (NEGATIVE) Urine Barbiturates Screen Neg (NEGATIVE) Urine Phencyclidine Screen Neg (NEGATIVE) Urine Amphetamines Screen Neg (NEGATIVE) Urine Benzodiazepines Screen Pos (NEGATIVE) Urine Cocaine Screen Neg (NEGATIVE) Urine Cannabinoids Screen Neg (NEGATIVE) Lactic Acid Level 0.4 mmol/L (0.4-2.0) Troponin I High Sensitivity 21 ng/L (</=54) Other Laboratory Tests 09/09/25 11:55 Brief Hx & Hospital Course: History of Present Illness Chief complaints: Altered mental status Wil Franz, 64-year-old male with previous history of Parkinson's disease on antiparkinson medications accompanied by family members presented to the ER with altered mental status, involuntary movements and abdominal pain. History was obtained from the family members due to patient's mental status. They reported that patient's baseline mental status is mild confusion, however, on the day of admission the patient was very agitated and escaped from home. That is why they brought him to the hospital. The sister reports the patient complained of upper abdominal pain, before the episode started. She denies the patient having any urinary symptoms, shortness of breath, chest pain or any other complaints before starting the episodes of hallucinations. Course of hospitalization: Patient was started on IV hydration, and antibiotic therapy with Rocephin. Patient's neurological status has improved dramatically. He no longer exhibits questionable hallucinations or delusions. Patient is A&O x4. Continues to have tremors secondary to his Parkinson's disease. Diagnostic workup has all been unremarkable other than mildly elevated CRP and lactic acid level. CT scan of the brain is negative. He has been seen by Neurology, who has cleared the patient from his standpoint. Patient will be continued on cefdinir 300 mg p.o. b.i.d. for an additional seven days in his instructed to follow up with his PCP and neurologist as an outpatient. He is agreeable with discharge plan. All questions answered. Physical examination General: Alert and Oriented x3. No acute distress. Well-nourished. Eyes: EOMI. Anicteric. HENT: Moist mucous membranes. Lungs: Clear to auscultation bilaterally. No accessory muscle use. Cardiovascular: Regular rate and rhythm. No murmur. No JVD. Abdomen: Soft, non-tender and non-distended. No palpable masses. Extremities: No edema. Non-tender. Skin: No rashes or lesions. Warm. Neurologic: No focal neurological deficits. CN II-XII grossly intact, but not individually tested. Psychiatric: Cooperative. Appropriate mood and affect. Total time spent with patient discussing and formulating plan of care: 35 minutes. This medical document was created using an electronic medical record system with [employer] dictation system. Although this document has been carefully reviewed, there may still be some phonetic and typographical errors. These areas are purely typographical due to imperfections of the software programs, and do not reflect any compromise in the patient's medical care. Condition at Discharge: Fair Final Diagnosis/Problems List -metabolic encephalopathy -lactic acidosis -Parkinson's disease -constipation Discharge Disposition: Home Discharge Instruct/Medications Diet: Regular Activity: No Restrictions, As Tolerated Follow Up/Referral: PCP in 1-2 weeks Neurologist in 1-2 weeks Medications: Cefdinir 300mg po bid Continue all home medications Scheduled Cefdinir (Cefdinir), 1 CAP PO BID Levodopa W/Carbidopa (Carbidopa/Levodopa), 1 TAB PO QID, (Reported) 36 Discharge Statement: "Patient was advised to return to the ER or call 911 if any headaches, dizziness, shortness of breath, chest pain, abdominal pain, bleeding, fevers, or worsening of medical condition. Patient was counseled about treatment plan, medications, possible side effects, patientverbalized understanding. All questions were answered to the best of my ability. This discharge took greater then 30 minutes in planning, reviewing documentation, counseling the patient, and discussing with other team members." ASSESSMENT ASSESSMENT Assessment Metabolic Encephalopathy Date of Service: Sep 10, 2025 Billing Provider: REGGIE HANNAH NP Common Visit Codes: [id number] DISCH DAY >30min REGGIE HANNAH NP Sep 10, 2025 12:42
[2025-09-11 11:08] LABS: Vitamin D-2 25-Hydroxy <1.0 ng/mL (.); Vitamin D-3 25-Hydroxy 26 ng/mL (.)
[2025-09-17 03:07] LABS: Vitamin B1, Whole Blood 131.8 nmol/L (66.5-200.0)
== END 2025-09-10 16:51 | disposition home or self-care (01) | DRG 52 ==
LOC: EDBD 14:42 → ER 14:42 → OVERFLOW 21:24 → EAST 09-07 16:36
PROVIDERS: ADMIT Nurse Practitioner Acute Care; ATTEND Nurse Practitioner Acute Care
DX: G93.41 Metabolic encephalopathy (principal); E87.20 Acidosis, unspecified; G20.A1 Parkinson's disease without dyskinesia, without mention of fluctuations; G92.8 Other toxic encephalopathy; Z20.822 Contact with and (suspected) exposure to COVID-19; K59.00 Constipation, unspecified; Z87.891 Personal history of nicotine dependence
CPT/HCPCS: 36415; 70450; 71045; 74176; 80048; 80307; 81001; 82140; 82306; 82607; 82746; 82962; 83605; 83880; 84425; 84443; 84484; 85025; 85652; 86141; 87040; 87086; 87426; 87804; 93005; 96361; 96374; 99291; G0378; J1885; J2250; J2470